=== PATIENT | female | born 1995 | race Two or more races ===

== ENCOUNTER 2017-04-10 12:59 | Emergency (ER) | payer MEDICAID ==
[2017-04-10 16:42] LABS: BILIRUBIN,URINE NEGATIVE (NEGATIVE)
[2017-04-10 16:44] LABS: HCG UR QUAL NEGATIVE; UA w/ MICROSCOPIC CHARGE YES
[2017-04-10 16:52] LABS: UR CULTURE IF IND INDICATED
--- NOTE | 2017-04-10 17:05 | ED Physician Documentation ---
PD HPI NVD - Stated complaint Stated Complaint: VOMITTING,SYNCOPE - Chief complaint Chief Complaint: Abd Pain - History obtained from History obtained from: Patient - History of Present Illness Timing - onset: Yesterday Timing - duration: Hours (12) Timing - details: Abrupt onset, Still present Associated symptoms: Loss of appetite. No: Fever, Abdominal pain, Dysuria Contributing factors: Alcohol use (yesterday/last evening). No: Sick contact, Bad food, Travel, Recent antibiotics Similar symptoms before: Has not had sx before Recently seen: Not recently seen Review of Systems Constitutional: reports: Myalgias. denies: Fever, Chills Nose: denies: Rhinorrhea / runny nose, Congestion Throat: denies: Sore throat Cardiac: denies: Chest pain / pressure Respiratory: denies: Cough GI: reports: Nausea, Vomiting, Hematemesis (mild blood streaks this morning with persistent vomiting.). denies: Abdominal Pain, Diarrhea : denies: Dysuria, Frequency, Discharge, Missed period Skin: denies: Rash Neurologic: reports: Generalized weakness. denies: Near syncope, Syncope, Altered mental status PD PAST MEDICAL HISTORY - Past Medical History Cardiovascular: None Endocrine/Autoimmune: None GI: None Other Past Medical History: alopecia - Present Medications Home Medications: Ambulatory Orders Medication Instructions Recorded Confirmed Cephalexin [Keflex] 500 mg PO TID #15 capsule 04/10/17 Famotidine [Pepcid] 20 mg PO ONCE #10 tablet 04/10/17 Ondansetron Odt [Zofran] 4 mg TL Q6H PRN #15 tablet 04/10/17 - Allergies Allergies/Adverse Reactions: Allergies Allergy/AdvReac Type Severity Reaction Status Date / Time No Known Drug Allergies Allergy Verified 04/10/17 13:26 - Social History Does the pt smoke?: Yes Smoking Status: Current every day smoker PD ED PE NORMAL - Vitals Vital signs reviewed: Yes - General General: Alert and oriented X 3, Well developed/nourished - HEENT HEENT: Pharynx benign. No: Moist mucous membranes - Neck Neck: Supple, no meningeal sign, No adenopathy - Cardiac Cardiac: RRR, No murmur - Respiratory Respiratory: Clear bilaterally - Abdomen Abdomen: Soft, Non tender, Non distended, No organomegaly - Female Female : Deferred - Rectal Rectal: Deferred - Back Back: No CVA TTP - Derm Derm: Warm and dry. No: Normal color (pale) - Extremities Extremities: Normal ROM s pain, No edema, No calf tenderness / cord - Neuro Neuro: Alert and oriented X 3, No motor deficit, Normal speech Results - Vitals Vitals: Vital Signs - 24 hr 04/10/17 04/10/17 04/10/17 13:22 16:23 17:43 Temperature 36.5 C 36.3 C L Heart Rate 61 62 70 Respiratory 16 16 14 Rate Blood Pressure 117/75 121/88 H 108/55 L O2 Saturation 98 100 98 04/10/17 04/10/17 18:47 19:50 Temperature 37.2 C 36.9 C Heart Rate 64 65 Respiratory 15 15 Rate Blood Pressure 118/75 110/55 L O2 Saturation 100 100 Oxygen O2 Source Room air - Labs Labs: Laboratory Tests 04/10/17 04/10/17 13:26 16:25 POC Whole Bld Glucose 110 H Urine Color YELLOW Urine Clarity SL. CLOUDY Urine pH 8.0 H Ur Specific [place] 1.015 Urine Protein 30 H Urine Glucose (UA) NEGATIVE Urine Ketones 40 H Urine Occult Blood NEGATIVE Urine Nitrite NEGATIVE Urine Bilirubin NEGATIVE Urine Urobilinogen 0.2 (NORMAL) Ur Leukocyte Esterase TRACE H Urine RBC 0-5 Urine WBC 11-25 H Ur Squamous Epith Cells FEW Squamous Urine Bacteria Many H Urine Mucus Few Strands Ur Microscopic Review INDICATED Urine Culture Comments INDICATED Urine HCG, Qual NEGATIVE PD MEDICAL DECISION MAKING - ED course Complexity details: considered differential (presume some stomach irritation with persistent gastritis, likely from soem alcohol use yesterday. Feeling better with fluids/meds here. No diarrhea, so less likely viral/GE. Abd not tender so low suspicion for appy/ gallbladder/etc.), d/w patient Departure - Departure Disposition: 01 Home, Self Care Clinical Impression: Dehydration, Cystitis Vomiting Qualifiers: Vomiting type: unspecified Vomiting Intractability: intractable Nausea presence : with nausea Qualified Code(s): R11.2 - Nausea with vomiting, unspecified Gastritis Qualifiers: Gastritis type: unspecified gastritis Chronicity: acute Gastritis bleeding: without bleeding Qualified Code(s): K29.00 - Acute gastritis without bleeding Condition: Stable Record reviewed to determine appropriate education?: Yes Instructions: ED Gastritis, ED Nausea Vomiting Prescriptions: Cephalexin [Keflex] 500 mg PO TID #15 capsule Famotidine [Pepcid] 20 mg PO ONCE #10 tablet Ondansetron Odt [Zofran] 4 mg TL Q6H PRN #15 tablet PRN Reason: Nausea / Vomiting Comments: Small frequent fluids. I presume something irritated her stomach and the vomiting just perpetuated it. This would be termed gastritis. I would take some acid reducing medicine such as famotidine daily for the next 7-10 days. Use ondansetron if needed for nausea. Recheck if not improved over the next couple of days. There is a possible mild bladder infection and take cephalexin as directed for that. The urine culture will result in 2-3 days to better confirm this. Recheck if worse again. Discharge Date/Time: 04/10/17 20:56
[2017-04-10] MEDS ORDERED: FAMOTIDINE 20 MG/50 ML 50 ML IV ONE ×2 (17:26→17:35)
[2017-04-10] MEDS ORDERED: SODIUM CHLORIDE 0.9% 1,000 ML IV ONE ×2 (17:26)
[2017-04-10] MEDS ORDERED: ONDANSETRON 4 MG/2 ML VIAL IVP STA (17:26)
[2017-04-10] MEDS ORDERED: ONDANSETRON 4 MG/2 ML VIAL ONE (17:34)
[2017-04-10] MEDS ORDERED: SODIUM CHLORIDE FLUSH 0.9% 10 ML SYRINGE IVP ONE ×2 (17:36→20:41)
[2017-04-10] MEDS ORDERED: LIDOCAINE VISCOUS 2% 15 ML UDC MM STA (19:01)
[2017-04-10] MEDS ORDERED: MAG HYDROX/AL HYDROX/SIMETH 30 ML UDC PO STA (19:01)
[2017-04-10] MEDS ORDERED: MAG HYDROX/AL HYDROX/SIMETH 30 ML UDC ONE (19:19)
[2017-04-10] MEDS ORDERED: LIDOCAINE VISCOUS 2% 15 ML UDC MM ONE (19:19)
[2017-04-10 19:51] VITALS: BP 110/55
[2017-04-10] MEDS ORDERED: ONDANSETRON ODT 4 MG Prepack 2 TL PRN (20:20)
[2017-04-10] MEDS ORDERED: HYDROcod/ACET 5/325 Prepack 6 PO ONE ×2 (20:20→20:27)
[2017-04-10] MEDS ORDERED: CEPHALEXIN 250 MG CAPSULE PO STA (20:23)
[2017-04-10] MEDS ORDERED: ONDANSETRON ODT 4 MG Prepack 2 TL ONE (20:27)
[2017-04-10] MEDS ORDERED: CEPHALEXIN 250 MG CAPSULE PO ONE (20:34)
== END 2017-04-10 20:56 | disposition home or self-care (01) ==
LOC: ED 12:59
DX: E86.0 Dehydration (principal); N30.00 Acute cystitis without hematuria; K29.00 Acute gastritis without bleeding; F17.200 Nicotine dependence, unspecified, uncomplicated
CPT/HCPCS: 81001; 81025; 87086; 87181; 96365; 96375; 99284; A9270; 81003

== ENCOUNTER 2017-05-09 16:15 | Emergency (ER) | payer MEDICAID ==
--- NOTE | 2017-05-09 19:42 | ED Physician Documentation ---
PD HPI UPPER EXT INJURY - Stated complaint Stated Complaint: LT HAND LAC - Chief complaint Chief Complaint: Ext Problem - History obtained from History obtained from: Patient - History of Present Illness Location: Left, Hand (proximal end of index finger MCP dorsally.) Type of injury: Laceration (with knife while cutting food.) Timing - onset: Today Timing - details: Abrupt onset, Still present (not bleeding now.) Improved by: Rest Worsened by: Palpating Associated symptoms: No: Weakness, Numbness Review of Systems Skin: reports: Laceration (s) Neurologic: denies: Focal weakness, Numbness, Near syncope PD PAST MEDICAL HISTORY - Past Medical History Past Medical History: No Cardiovascular: None Endocrine/Autoimmune: None GI: None - Past Surgical History Past Surgical History: No - Present Medications Home Medications: Ambulatory Orders Medication Instructions Recorded Confirmed No Known Home Medications [No 05/09/17 05/09/17 Known Home Medications] - Allergies Allergies/Adverse Reactions: Allergies Allergy/AdvReac Type Severity Reaction Status Date / Time No Known Drug Allergies Allergy Verified 04/10/17 13:26 - Social History Does the pt smoke?: Yes Smoking Status: Current every day smoker Does the pt drink ETOH?: No Does the pt have substance abuse?: Yes Substance Use and Type: Marijuana - Immunizations Immunizations are current?: No Immunizations: TDAP >10years/unknown PD ED PE NORMAL - Vitals Vital signs reviewed: Yes - General General: Alert and oriented X 3, No acute distress, Well developed/nourished - Derm Derm: Normal color, Warm and dry - Extremities Extremities: Other (dorsal left index finger MCP with laceration to fatty tissue. Small venous bleeding when opened. No FB. Normal tendon function. ) - Neuro Neuro: No motor deficit, No sensory deficit Results - Vitals Vitals: Oxygen O2 Source Room air Procedures - Laceration (location) left hand near index MCP Length in cm: 1.5 Wound type: Curved Neurovascular status: No: Sensory intact, Motor intact Tendon involvement: Tendon intact Anesthesia: Lidocaine 1% with epi Wound Preparation: Wound explored, To the base. No: FB identified Skin layer closure: Nylon, Interrupted, Size #-0 - enter number (4), Sutures - enter # (8) Other: Patient tolerated well, No complications, Neurovascular intact, Tetanus UTD Complexity: Simple PD MEDICAL DECISION MAKING - ED course Complexity details: considered differential (does not look like it would stay closed with glue/steristrips, so opted for sutures. ), d/w patient Departure - Departure Disposition: 01 Home, Self Care Clinical Impression: Hand laceration Qualifiers: Encounter type: initial encounter Foreign body presence: without foreign body Laterality: left Qualified Code(s): S61.412A - Laceration without foreign body of left hand, initial encounter Condition: Stable Record reviewed to determine appropriate education?: Yes Instructions: ED Laceration Hand Comments: It is okay to wash and shower. Clean off the wound twice a day with soap and water, or peroxide and water. Apply some antibiotic ointment to it to keep it moist. Also to watch for signs of infection such as purulence, redness or increasing pain. Return to your primary care or the ER at the specified time for suture removal. Suture removal 9-10 days. Tylenol or ibuprofen if needed for pain. Activity as able. Discharge Date/Time: 05/09/17 21:12
[2017-05-09] MEDS ORDERED: BACITRACIN OINT TOP ONE (21:02)
[2017-05-09 21:06] VITALS: BP 113/61
== END 2017-05-09 21:12 | disposition home or self-care (01) ==
LOC: ED 16:15
DX: S61.412A Laceration without foreign body of left hand, initial encounter (principal); W26.0XXA Contact with knife, initial encounter; Y93.G1 Activity, food preparation and clean up; F17.200 Nicotine dependence, unspecified, uncomplicated
CPT/HCPCS: 12001; 99282; 99283; A9270

== ENCOUNTER 2017-06-25 18:53 | Emergency (ER) | payer MEDICAID ==
[2017-06-25 20:10] LABS: BILIRUBIN,URINE NEGATIVE (NEGATIVE); PH,URINE 8.5 PH (5.0-7.5)
[2017-06-25 20:14] LABS: HCG UR QUAL NEGATIVE; UA w/ MICROSCOPIC CHARGE YES
[2017-06-25 20:16] LABS: UR CULTURE IF IND NOT INDICATED; WBC,URINE 0-3 /HPF (0-5)
--- NOTE | 2017-06-25 21:52 | Ultrasound Preliminary Report ---
Exam: US PEL NON OB W/TV + DOP IMPRESSION: Complex cysts/follicles on the left, 3.0 x 2.8 x 2.7 cm and 2.2 x 2.1 x 2.2 cm, likely he morrhagic, with small amount of free fluid. Otherwise unremarkable pelvic ultrasound. [facility] SITE ID: [id number]
--- NOTE | 2017-06-25 21:55 | Ultrasound Report ---
EXAM: PELVIC ULTRASOUND EXAM DATE: 06/25/2017 09:43 PM. CLINICAL HISTORY: Lower abdominal pain. COMPARISON: None. TECHNIQUE: Realtime transabdominal pelvic scan performed to identify the uterus and adnexa and as an overview of other pelvic structures, followed by transvaginal scan to provide greater detail of the u terus and adnexa, with static image documentation. FINDINGS: Uterus: 7.5 x 3.0 x 4.4 cm, volume 51.3 cc. Anteverted position. Normal overall size and echotexture. Masses: None. Endometrium: 10 mm. Normal. Cervix: Unremarkable. Right Ovary: 3.8 x 1.8 x 2.3 cm, volume 8 cc. Normal echotexture and blood flow. Left Ovary: 3.6 x 3.2 x 4.6 cm, volume 28.1 cc. Normal echotexture and blood flow. Complex cysts/foll icles, 3.0 x 2.8 x 2.7 cm and 2.2 x 2.1 x 2.2 cm. Free Fluid: Small amount. Other: None. IMPRESSION: Complex cysts/follicles on the left, likely hemorrhagic, with small amount of free fluid. Otherwise unremarkable pelvic ultrasound. [facility] Referring Provider Line: [phone] SITE ID: [id number]
--- NOTE | 2017-06-25 22:01 | ED Physician Documentation ---
PD HPI FEMALE - Stated complaint Stated Complaint: FEMALE - Chief complaint Chief Complaint: Abd Pain - History obtained from History obtained from: Patient, Friend - History of Present Illness Timing - onset: Yesterday Timing - details: Gradual onset, Still present Associated symptoms: Pelvic pain Similar symptoms before: Has not had sx before Recently seen: Not recently seen - Additional information Additional information: Patient is a 21 year old female with no significant past medical history who is presenting to the emergency department for lower abdominal pain. patient states that it started yesterday and it was more on the right, but today it migrated to the left side. patient denies any vaginal bleeding, vaginal discharge or urinary complaints. Review of Systems Constitutional: denies: Fever, Chills Eyes: reports: Reviewed and negative Nose: reports: Reviewed and negative Throat: reports: Reviewed and negative Cardiac: denies: Chest pain / pressure, Palpitations Respiratory: denies: Cough GI: reports: Abdominal Pain. denies: Nausea, Vomiting, Constipation, Diarrhea : denies: Dysuria, Frequency, Hematuria, Discharge, Vaginal bleeding Musculoskeletal: denies: Back pain, Extremity pain Neurologic: denies: Generalized weakness Immunocompromised: denies: Immunocompromised PD PAST MEDICAL HISTORY - Past Medical History Cardiovascular: None Endocrine/Autoimmune: None GI: None Other Past Medical History: allopecia - Past Surgical History Past Surgical History: No - Present Medications Home Medications: Ambulatory Orders Medication Instructions Recorded Confirmed No Known Home Medications [No 05/09/17 06/25/17 Known Home Medications] - Allergies Allergies/Adverse Reactions: Allergies Allergy/AdvReac Type Severity Reaction Status Date / Time No Known Drug Allergies Allergy Verified 06/25/17 19:10 - Social History Does the pt smoke?: Yes Smoking Status: Current every day smoker Does the pt drink ETOH?: No Does the pt have substance abuse?: Yes Substance Use and Type: Marijuana - Immunizations Immunizations are current?: No Immunizations: TDAP >10years/unknown PD ED PE NORMAL - Vitals Vital signs reviewed: Yes - General General: Alert and oriented X 3, No acute distress - HEENT HEENT: Atraumatic, PERRL - Neck Neck: Supple, no meningeal sign - Cardiac Cardiac: RRR, No murmur - Respiratory Respiratory: No respiratory distress - Abdomen Abdomen: Soft, Non distended - Derm Derm: Normal color, Warm and dry - Extremities Extremities: No deformity, No tenderness to palpate, No edema - Neuro Neuro: Alert and oriented X 3, No motor deficit, No sensory deficit, Normal speech - Psych Psych: Normal mood, Normal affect PD ED PE EXPANDED - Abdomen Abdomen: Tender to palpation (mild tenderness to palpation of left lower quadrant, no rebound, no guarding) Results - Vitals Vitals: Vital Signs - 24 hr 06/25/17 06/25/17 19:06 22:11 Temperature 36.9 C Heart Rate 66 68 Respiratory 16 16 Rate Blood Pressure 90/64 98/66 O2 Saturation 100 100 Oxygen O2 Source Room air - Labs Labs: Laboratory Tests 06/25/17 19:59 Urine Color LIGHT YELLOW Urine Clarity CLOUDY Urine pH 8.5 H Ur Specific [place] 1.015 Urine Protein NEGATIVE Urine Glucose (UA) NEGATIVE Urine Ketones NEGATIVE Urine Occult Blood NEGATIVE Urine Nitrite NEGATIVE Urine Bilirubin NEGATIVE Urine Urobilinogen 0.2 (NORMAL) Ur Leukocyte Esterase NEGATIVE Urine RBC None Seen Urine WBC 0-3 Ur Squamous Epith Cells FEW Squamous Amorphous Sediment Marked Urine Bacteria None Seen Ur Microscopic Review INDICATED Urine Culture Comments NOT INDICATED Urine HCG, Qual NEGATIVE - Rads (name of study) pelvic ultrasound Radiology: Final report received (complex cysts, follicle on the left, likely hemorrhagic), See rad report PD MEDICAL DECISION MAKING - ED course Complexity details: reviewed old records, reviewed results, re-evaluated patient , considered differential, d/w patient ED course: patient was seen and examined at bedside. urine was collected and patient was not . Imaging was ordered. When patient returned the results were reviewed. there were cysts but no sign of torsion or other emergencies. Patient required no further work up and was stable for discharge with outpatient follow up. Departure - Departure Disposition: 01 Home, Self Care Clinical Impression: Hemorrhagic cyst of left ovary Condition: Good Instructions: ED Cyst Ovarian Follow-Up: primary,care provider [Other] - As Needed Comments: Your symptoms today are being caused by an ovarian cyst. While it is nothing that needs to be done at this time, You will need to return to the emergency department for severe abdominal pain, or any symptoms of excessive blood loss, including dizziness, or passing out. Otherwise you should follow up with your barley steeper. You can take motrin or tylenol as needed for pain. Discharge Date/Time: 06/25/17 22:12
[2017-06-25 22:11] VITALS: BP 98/66
== END 2017-06-25 22:12 | disposition home or self-care (01) ==
LOC: ED 18:53
DX: N83.202 Unspecified ovarian cyst, left side (principal); F17.200 Nicotine dependence, unspecified, uncomplicated
CPT/HCPCS: 76830; 76856; 81001; 81003; 81025; 87086; 93975; 99283

== ENCOUNTER 2017-08-21 08:00 | Outpatient (CLI) | payer MEDICAID ==
[2017-08-21 19:18] LABS: BASOPHILS % (AUTO) 0.6 %; EOSINOPHILS # (AUTO) 0.2 10^3/uL (0.0-0.7); EOSINOPHILS % (AUTO) 3.4 %; HGB - HEMOGLOBIN 11.9 g/dL (12.0-16.0); LYMPHOCYTES # (AUTO) 3.2 10^3/uL (1.5-3.5); LYMPHOCYTES % (AUTO) 46.7 %; MEAN CORPUSCULAR HEMOGLOBIN 30.3 pg (27.0-31.0); MEAN CORPUSCULAR HGB CONC 33.3 g/dL (32.0-36.0); MEAN PLATELET VOLUME 8.4 fL (7.9-10.8); MONOCYTES # (AUTO) 0.4 10^3/uL (0.0-1.0); MONOCYTES % (AUTO) 5.2 %; NEUTROPHILS # (AUTO) 3.1 10^3/uL (1.5-6.6); NEUTROPHILS % (AUTO) 44.1 %; PLT - PLATELET COUNT 276 10^3/uL (130-450); RED BLOOD COUNT 3.93 10^6/uL (4.20-5.40); RED CELL DISTRIBUTION WIDTH 12.9 % (12.0-15.0)
[2017-08-21 21:20] LABS: ALBUMIN 4.2 g/dL (3.2-5.5); ALBUMIN/GLOBULIN RATIO 1.7 (1.0-2.2); ALKALINE PHOSPHATASE 49 IU/L (42-121); ALT ALANINE AMINOTRANSFERASE 15 IU/L (10-60); AST ASPARTATE AMINOTRANSFERASE 18 IU/L (10-42); BILIRUBIN,TOTAL 0.2 mg/dL (0.2-1.0); BUN - BLOOD UREA NITROGEN 12 mg/dL (6-20); CALCIUM 8.9 mg/dL (8.5-10.3); CARBON DIOXIDE - CO2 24 mmol/L (21-32); CHLORIDE 104 mmol/L (101-111); CHOLESTEROL 167 mg/dL; CREATININE 0.7 mg/dL (0.4-1.0); GFR - MDRD 107 (>89); GLUCOSE 94 mg/dL (70-100); HDL CHOLESTEROL 56 mg/dL; LDL CHOLESTEROL,CALCULATED 86 mg/dL; LDL/HDL RATIO 1.5 (<4.4); SODIUM 136 mmol/L (135-145); TOTAL PROTEIN 6.7 g/dL (6.7-8.2); VLDL CHOLESTEROL 25 mg/dL
== END 2017-08-21 08:01 ==
LOC: LAB.N 08:00
PROVIDERS: ATTEND Nurse Practitioner Gerontology
DX: Z13.9 Encounter for screening, unspecified (principal)
CPT/HCPCS: 36415; 80050; 80061

== ENCOUNTER 2017-09-15 08:00 | Outpatient (CLI) | payer MEDICAID | END 2017-09-15 08:01 | disposition home or self-care (01) | LOC: LAB.R 08:00 | PROVIDERS: ATTEND Registered Nurse | DX: Z11.3 Encounter for screening for infections with a predominantly sexual mode of transmission (principal) | CPT/HCPCS: 87491; 87591 ==

== ENCOUNTER 2019-02-12 08:00 | Outpatient (CLI) | payer MEDICAID, OTHER ==
[2019-02-12 22:46] LABS: TRICHOMONAS VAGINALIS DNA NEGATIVE (NEGATIVE)
== END 2019-02-12 23:59 | disposition home or self-care (01) ==
LOC: LAB.R 08:00
PROVIDERS: ATTEND Obstetrics & Gynecology
DX: N39.9 Disorder of urinary system, unspecified (principal)
CPT/HCPCS: 87491; 87591; 87661